=== PATIENT | male | born 2005 | race Caucasian/White ===

== ENCOUNTER 2024-12-23 17:49 | Emergency (ER) | payer SELFPAY ==
[~2024-12-23] VITALS: Ht 172.7 cm; Wt 86.2 kg
[2024-12-23] MEDS ORDERED: VIBRAMYCIN100 MG PO (18:18)
[2024-12-23] MEDS ORDERED: Doxycycline Hyclate 100 MG CAPSULE PO ONE (18:20)
== END 2024-12-23 18:31 | disposition home or self-care (01) ==
LOC: ED 17:49
DX: L03.112 Cellulitis of left axilla (principal); Z88.8 Allergy status to other drugs, medicaments and biological substances